=== PATIENT | female | born 1995 | race Caucasian/White ===

== ENCOUNTER 2017-09-25 22:42 | Emergency (ER) | payer BC, OTHER ==
[2017-09-25 23:07] VITALS: BP 149/88; PULSE 110; TEMP 98.5; BMI 35.4
--- NOTE | 2017-09-26 00:42 | PDOC ---
History of Present Illness - General Chief Complaint: Pain Stated Complaint: CYST Time Seen by Provider: 09/26/17 00:42 - History of Present Illness Initial Comments: 21 year old female with history of folliculitis and recurrent abscesses (never requiring drainage and self resolving) presenting with abscesses that haven't resolved for the past two days. She states that she felt a painful lump on the medial aspect of her left breast and in her right axilla over the past few days. She states that these lumps usually resolve with warm soaks within a day but they have persisted this time despite these measures. there is no drainage from these wounds. Denies fevers, chills, nausea, vomiting, diarrhea, or other sick symptoms. 09/26/17 06:41 Past History - Past Medical History Allergies/Adverse Reactions: Allergies Allergy/AdvReac Type Severity Reaction Status Date / Time No Known Allergies Allergy Verified 09/25/17 23:03 Home Medications: Ambulatory Orders Sulfamethoxazole/Trimethoprim [Bactrim Ds -] 1 tab PO BID #14 tablet 09/26/17 Asthma: Yes COPD: No - Suicide/Smoking/Psychosocial Hx Smoking History: Never smoked Have you smoked in the past 12 months: No Information on smoking cessation initiated: No Hx Alcohol Use: No Drug/Substance Use Hx: No Substance Use Type: None Review of Systems - Review of Systems Constitutional: No: Chills, Fever, Loss of Appetite HEENTM: No: Blurred Vision Respiratory: No: Cough, Shortness of Breath, Wheezing Cardiac (ROS): No: Chest Pain ABD/GI: No: Diarrhea, Nausea, Vomiting : No: Burning, Dysuria Musculoskeletal: No: Back Pain Integumentary: Yes: Lesions, Lumps. No: Change in Color Neurological: No: Headache, Numbness, Paresthesia *Physical Exam - Vital Signs Last Vital Signs Temp Pulse Resp BP Pulse Ox 98.5 F 110 H 20 149/88 98 09/25/17 23:04 09/25/17 23:04 09/25/17 23:04 09/25/17 23:04 09/25/17 23:04 - Physical Exam General Appearance: Yes: Nourished, Appropriately Dressed. No: Apparent Distress HEENT: positive: EOMI, MICHEL, Normal ENT Inspection, Normal Voice Neck: positive: Trachea midline, Normal Thyroid, Supple. negative: Tender, Rigid Respiratory/Chest: positive: Chest Tender (Slight tenderness in the medial aspect of the left breast overlying an area of slight erythema and slight swelling measuring 0.5 CM in diameter.), Lungs Clear, Normal Breath Sounds. negative: Respiratory Distress Cardiovascular: positive: Regular Rhythm, Regular Rate. negative: Murmur Musculoskeletal: positive: Normal Inspection Extremity: positive: Normal Inspection, Normal Range of Motion Integumentary: positive: Dry, Warm. negative: Normal Color (Two small subcutaneous nodules measuring 0.5 CM in the medial aspect of the left breast and in the right axilla. No drainage. ) Neurologic: positive: Fully Oriented, Alert, Normal Mood/Affect Medical Decision Making - Medical Decision Making Previously healthy 21 y/o F presenting with two small subcutaneous abscesses in her left breast and right axilla. These don't appear drainable and the patient is afebrile with VSS. Given the lack of resolution, she will need antibiotics. Gave one dose of Bactrim DS here and sent out with a week of BID DS bactrim. 09/26/17 06:54 *DC/Admit/Observation/Transfer Diagnosis at time of Disposition: Abscess - Discharge Dispostion Disposition: HOME Condition at time of disposition: Improved Admit: No - Prescriptions Prescriptions: Sulfamethoxazole/Trimethoprim [Bactrim Ds -] 1 tab PO BID #14 tablet - Patient Instructions Printed Discharge Instructions: DI for Skin Abscess Additional Instructions: You were seen for some small abscesses under your skin in your left breast and right armpit. They are too small to drain but should respond very well to antibiotics. Please take the antibiotics as prescribed. Please return to the ED if you have any new or worsening symptoms.
--- NOTE | 2017-09-26 01:08 | PDOC ---
Attending Attestation - HPI HPI: 09/26/17 01:10 The patient is a 21 year old female with a significant PMH of bumps under skin who presents to the emergency department after being concerned by 2 novel bumps on her skin. The patient reports that she regularly develops bumps under her skin in different body regions, which typically disappear after a day or with warm showers. She presents to the ED after noting a bump on her left breast and another bump on the right axilla which are more painful than usual. The bumps are non-draining. The patient denies chest pain, shortness of breath, headache and dizziness. Denies fever, chills, nausea, vomit, diarrhea and constipation. Denies dysuria, frequency, urgency and hematuria. <Iggy Vance - Last Filed: 09/26/17 01:10> - Resident Resident Name: [email or web address] - ED Attending Attestation I have performed the following: I have examined & evaluated the patient, The case was reviewed & discussed with the resident, I agree w/resident's findings & plan, Exceptions are as noted - HPI HPI: 09/26/17 01:05 multiple abscesses - Physicial Exam PE: 09/26/17 01:07 Physical Exam General Appearance: Yes: Appropriately Dressed. No: Apparent Distress, Intoxicated HEENT: positive: EOMI, MICHEL, Normal ENT Inspection, Normal Voice, TMs Normal, Pharynx Normal. negative: Pale Conjunctivae, Photophobia, Scleral Icterus (R), Scleral Icterus (L) Neck: positive: Trachea midline, Normal Thyroid, Supple. negative: Tender, Rigid, Carotid bruit, Stridor, Lymphadenopathy (R), Lymphadenopathy (L), Thyromegaly Respiratory/Chest: positive: Lungs Clear, Normal Breath Sounds. negative: Chest Tender, Respiratory Distress, Accessory Muscle Use, Labored Respiration, RES, Crackles, Rales, Rhonchi, Stridor, Wheezing, Dullness Cardiovascular: positive: Regular Rhythm, Regular Rate, S1, S2. negative: Edema , JVD, Murmur, Bradycardia, Tachycardia Vascular Pulses: Dorsalis-Pedis (R): 2+, Doralis-Pedis (L): 2+ Gastrointestinal/Abdominal: positive: Normal Bowel Sounds, Flat, Soft. negative : Tender, Organomegaly, Pulsatile Mass, Increased Bowel Sounds, Decreased BS, Distended, Guarding, Rebound, Hernia, Hepatomegaly, Spleenomegaly Lymphatic: negative: Adenopathy, Tenderness Musculoskeletal: positive: Normal Inspection. negative: CVA Tenderness, Decreased Range of Motion Extremity: positive: Normal Capillary Refill, Normal Inspection, Normal Range of Motion, Pelvis Stable. negative: Tender, Pedal Edema, Swelling, Erythema Integumentary: positive: Normal Color, Dry, Warm. negative: Cyanotic, Erythema , Jaundice, Rash Neurologic: positive: master control operator II-XII NML intact, Fully Oriented, Alert, Normal Mood/ Affect, Motor Strength 5/5. negative: EOM Palsy, Facial Droop, Sensory Deficit - Medical Decision Making 09/26/17 19:21 Pt treated and release <Herrera Onofre - Last Filed: 09/26/17 19:22>
[2017-09-26] MEDS ORDERED: SULFAMETHOXAZOLE/TRIMETHOPRIM 800MG/160MG D.S. TABLET PO ONE (01:27)
[2017-09-26] MEDS ORDERED: SULFAMETHOXAZOLE/TRIMETHOPRIM 800MG/160MG D.S. TABLET ONE (01:27)
== END 2017-09-26 01:31 | disposition home or self-care (01) ==
LOC: JER 22:42
DX: N61.1 Abscess of the breast and nipple (principal); J45.909 Unspecified asthma, uncomplicated
CPT/HCPCS: 99282-25

== ENCOUNTER 2023-11-19 06:30 | Emergency (ER) | payer BC, OTHER ==
[2023-11-19 06:42] VITALS: BMI 38.6
[2023-11-19] MEDS ORDERED: ONDANSETRON 4 MG/2 ML VIAL IVPUSH ONE (07:29)
[2023-11-19] MEDS ORDERED: SODIUM CHLORIDE 1,000 ML IV STA (07:36)
[2023-11-19] MEDS ORDERED: FAMOTIDINE 20 MG/50 ML IVPB 20 MG/50 ML MG IVPB ONE ×2 (07:36→07:54)
[2023-11-19] MEDS ORDERED: ACETAMINOPHEN 1000 MG/100 ML BAG IVPB ONE (07:36)
[2023-11-19] MEDS ORDERED: ACETAMINOPHEN INJECTION 100 ML IVPB ONE (07:52)
[2023-11-19] MEDS ORDERED: ONDANSETRON 4 MG/2 ML VIAL ONE (07:52)
[2023-11-19 08:24] LABS: HEMATOCRIT 41.5 % (32.4-45.2); HEMOGLOBIN 13.3 GM/dL (10.7-15.3); MCH 28.6 pg (25.7-33.7); MCHC 32.2 g/dl (32.0-36.0); MEAN CELL VOLUME 88.9 fl (80-96); MEAN PLT VOLUME 7.2 fl (7.5-11.1); PLATELET COUNT 363 10^3/uL (134-434); RBC 4.67 M/mm3 (3.60-5.2); RDW 13.3 % (11.6-15.6); WHITE BLOOD COUNT 13.2 K/mm3 (4.0-10.0)
[2023-11-19 08:42] LABS: POTASSIUM 4.7 mmol/L (3.5-5.1)
[2023-11-19 08:45] LABS: ALBUMIN 3.7 g/dl (3.4-5.0); BLOOD UREA NITROGEN 21.7 mg/dL (7-18); CALCIUM 9.3 mg/dL (8.5-10.1)
[2023-11-19 08:48] LABS: CREATININE 0.9 mg/dL (0.55-1.3)
[2023-11-19 08:50] LABS: BILIRUBIN,TOTAL 0.3 mg/dL (0.2-1); TOT PROT 8.2 g/dl (6.4-8.2)
[2023-11-19 08:59] LABS: ANISOCYTOSIS 1+; MACROCYTOSIS 0
[2023-11-19 10:09] LABS: PH,URINE 5.5 (5.0-8.0); URINE APPEARANCE CLEAR; URINE BILIRUBIN NEGATIVE (NEGATIVE); URINE COLOR YELLOW; URINE GLUCOSE (UA) NEGATIVE (NEGATIVE); URINE KETONE NEGATIVE (NEGATIVE); URINE LEUK ESTERASE NEGATIVE (NEGATIVE); URINE NITRITE NEGATIVE (NEGATIVE); URINE PROTEIN NEGATIVE (NEGATIVE); URINE UROBILINOGEN 0.2 mg/dL (0.2-1.0)
[2023-11-19] MEDS ORDERED: METOCLOPRAMIDE HCL INJECTION 10 MG/2 ML VIAL IVPB ONE (11:03)
[2023-11-19] MEDS ORDERED: METOCLOPRAMIDE HCL INJECTION 10 MG/2 ML VIAL ONE (12:19)
[2023-11-19 16:08] VITALS: BP 136/80; PULSE 96; RESP 16; TEMP 97.6
== END 2023-11-19 13:01 | disposition home or self-care (01) ==
LOC: JER 06:30
PROC: 3E033GC Introduction of Other Therapeutic Substance into Peripheral Vein, Percutaneous Approach (ICD-10-PCS; principal; 2023-11-19)
PROC: 3E033NZ Introduction of Analgesics, Hypnotics, Sedatives into Peripheral Vein, Percutaneous Approach (ICD-10-PCS; 2023-11-19)
PROC: 3E033GC Introduction of Other Therapeutic Substance into Peripheral Vein, Percutaneous Approach (ICD-10-PCS; 2023-11-19)
PROC: 3E033GC Introduction of Other Therapeutic Substance into Peripheral Vein, Percutaneous Approach (ICD-10-PCS; 2023-11-19)
PROC: 3E0337Z Introduction of Electrolytic and Water Balance Substance into Peripheral Vein, Percutaneous Approach (ICD-10-PCS; 2023-11-19)
DX: R11.2 Nausea with vomiting, unspecified (principal); R19.7 Diarrhea, unspecified; R10.9 Unspecified abdominal pain; Z20.822 Contact with and (suspected) exposure to COVID-19
CPT/HCPCS: 0241U-QW; 36415; 80053; 81003; 83690; 84703; 85025; 87086; 93005; 93010; 99284-25